=== PATIENT | female | born 1980 | race Caucasian/White ===

== ENCOUNTER 2019-04-09 13:57 | Inpatient (IN) | payer OTHER, SELFPAY ==
[2019-04-09] VITALS (17 sets, daily range): BP systolic 117–142; BP diastolic 76–102; PULSE 75–117; RESP 16–20; TEMP 36.6–37.2; O2SAT 94–100; BMI 31.3
--- NOTE | 2019-04-09 | XR_ITS ---
WS: [id number] XR ankle RT 2V [id number] REASON FOR EXAM: OR PICS FINDINGS: The dislocated fracture of the fibula and ankle mortise is now been corrected a metal plate is seen transversing the fibula fracture Posterior shelf of the tibia satisfactory alignment. XR/XR ankle RT 2V [id number] IMPRESSION: Satisfactory realignment dislocation of the right ankle with internal fixation.
--- NOTE | 2019-04-09 | SCC_ITS ---
Procedure Done: Open right internal fixation right lateral malleolus fracture 19.3 seconds of fluoroscopic guidance, for a cumulative dose of 0.37 mGy, was provided to Dr. Dinh by the radiology department. C-arm images of the RIGHT ankle were saved for the patient's permanent record. [facility]
--- NOTE | 2019-04-09 14:06 | XR_ITS ---
WS: [id number] XR ankle RT min 3V* [id number] REASON FOR EXAM: trauma FINDINGS: This study shows a dislocated fracture of the fibula with marked widening and displacement of the ankle mortise. There is also noted a fracture through the posterior shelf of the tibia. XR/XR ankle RT min 3V* [id number] IMPRESSION: Displaced fracture through the ankle mortise with a bimalleolar fracture and di splacement of the lateral malleolus as well as the posterior malleolus.
--- NOTE | 2019-04-09 14:06 | W.ED.EXTPRO ---
Documented by User: CECILIA Monte 04/09/19 15:07 HPI - Extremity Problem General: Chief complaint: Extremity Injury, Lower Stated complaint: right ankle pain Time Seen by Provider: 04/09/19 14:02 History of Present Illness: HPI Narrative: Patient was stepping out of a truck and she twisted her right ankle just a little while ago. Complains about swelling to right ankle cannot bear weight presently. She says it does not hurt. She has had 4 beers to drink. Since 11:00 this morning has not had anything to eat. MD Complaint: extremity pain and extremity swelling Onset (ago): minute(s) Pain Consistency: constant Location: right Relieving factors: nothing Exacerbating factors: weight bearing Associated symptoms: Deny chest pain, fever(s) or rash Review of Systems Const: Denies: fever, chills or body aches Eyes: Denies: change in vision or blurry vision ENMT: Denies: throat pain or nasal congestion Card: Denies: chest pain or shortness of breath on exertion Resp: Denies: shortness of breath, productive cough or non-productive cough GI: Denies: abdominal pain, nausea or vomiting Musc: Reports: extremity pain and extremity swelling Skin/Breast: Denies: rash Neuro: Denies: headache Psych: Denies: anxiety or depression Hernandez/Lymph: Denies: easy bruising PFS ED PFSH: Medical History (Updated 04/09/19 @ 15:57 by Rakesh Dinh DO) Fracture dislocation of right ankle joint Left ankle sprain Social History Smoking and tobacco status: current every day smoker Physical Exam Const: COMMON NORMALS: no apparent distress, average body habitus and oriented x3 HENMT: COMMON NORMALS: normocephalic HEAD & SCALP: normal to inspection and normocephalic FACE & SINUS: normal facial exam Eye: COMMON NORMALS: conjunctivae normal GENERAL EYE: normal appearance of both eyes CONJUNCTIVA: Yes conjunctivae normal Neck/C-Spine: COMMON NORMALS: no JVD Chest: COMMONS NORMALS: inspection of chest normal Resp: COMMON NORMALS: normal respiratory effort and clear to auscultation bilaterally AUSCULTATION: clear to auscultation bilaterally Cardio: COMMON NORMALS: no JVD, regular rate and regular rhythm RATE: regular rate RHYTHM: regular rhythm GI: COMMON NORMALS: normal to inspection, nondistended, normoactive bowel sounds Extremity: COMMON NORMALS: normal to inspection and full ROM RIGHT LOWER EXTREMITY: Yes ankle joint (Swelling bilaterally has range of motion good neurovascular exam) Neuro: COMMON NORMALS: oriented x3 Course Vital Signs: Vital signs: Vital Signs Temperature 98.7 F 04/09/19 15:38 Pulse Rate 117 H 04/09/19 15:38 Respiratory Rate 18 04/09/19 15:38 Blood Pressure 117/84 04/09/19 15:38 Pulse Oximetry 100 04/09/19 15:38 MDM - Extremity (Nontraumatic) MDM Narrative: Medical decision making narrative: Spoke with Dr. Dinh and he said he will be taken patient to surgery here next hour or 2. Please keep patient n.p.o. Discussed case with Dr. Oakes Lab Data: Labs: Lab Results 04/09/19 04/09/19 04/09/19 Range/Units 15:00 15:00 15:00 WBC 7.4 (4.0-10.0) 10^3/ uL RBC 4.42 (4.1-5.3) 10^6/u L Hgb 14.6 (11.5-15.3) g/dL Hct 42.6 (37.0-47.0) % MCV 96.4 (81-99) fL MCH 33.0 (28.0-34.0) pg MCHC 34.3 (30.0-36.0) g/dL RDW 11.7 L (12.1-15.1) % Plt Count 192 (130-400) 10^3/c mm MPV 10.3 (7.4-10.4) fL Neut % (Auto) 72.2 % Lymph % (Auto) 14.5 % [place] % (Auto) 10.7 % Eos % (Auto) 1.8 % Baso % (Auto) 0.5 % Neut # (Auto) 5.3 (1.8-7.7) 10^3/u L Lymph # (Auto) 1.1 (0.8-4.8) 10^3/u L [place] # (Auto) 0.8 (0.2-0.9) 10^3/u L Eos # (Auto) 0.1 (0.0-0.8) 10^3/u L Baso # (Auto) 0.0 (0.0-0.1) 10^3/u L Nucleated RBC % (a uto) 0 % Nucleated RBCs # 0.0 /100WBC PT 13.80 H (10.5-13.3) SECO NDS INR 1.03 (0.8-1.2) Sodium 127 L (136-145) mmol/L Potassium 3.5 (3.5-5.1) mmol/L Chloride 89 L (98-107) mmol/L Carbon Dioxide 23 (22-29) mmol/L Anion Gap 18.5 (5-19) BUN 7 (6-20) mg/dL Creatinine 0.7 (0.5-0.9) mg/dL GFR Calculation 92.7 (90-130) mL/min Glucose 103 (65-115) mg/dL Calculated Osmolal ity 260 L (285-295) mOsm/k g Calcium 9.8 (8.5-10.5) mg/dL HCG, Qual (Negative) Ethyl Alcohol 210 H (0-10) mg/dL 04/09/19 Range/Units 15:16 WBC (4.0-10.0) 10^3/ uL RBC (4.1-5.3) 10^6/u L Hgb (11.5-15.3) g/dL Hct (37.0-47.0) % MCV (81-99) fL MCH (28.0-34.0) pg MCHC (30.0-36.0) g/dL RDW (12.1-15.1) % Plt Count (130-400) 10^3/c mm MPV (7.4-10.4) fL Neut % (Auto) % Lymph % (Auto) % [place] % (Auto) % Eos % (Auto) % Baso % (Auto) % Neut # (Auto) (1.8-7.7) 10^3/u L Lymph # (Auto) (0.8-4.8) 10^3/u L [place] # (Auto) (0.2-0.9) 10^3/u L Eos # (Auto) (0.0-0.8) 10^3/u L Baso # (Auto) (0.0-0.1) 10^3/u L Nucleated RBC % (a uto) % Nucleated RBCs # /100WBC PT (10.5-13.3) SECO NDS INR (0.8-1.2) Sodium (136-145) mmol/L Potassium (3.5-5.1) mmol/L Chloride (98-107) mmol/L Carbon Dioxide (22-29) mmol/L Anion Gap (5-19) BUN (6-20) mg/dL Creatinine (0.5-0.9) mg/dL GFR Calculation (90-130) mL/min Glucose (65-115) mg/dL Calculated Osmolal ity (285-295) mOsm/k g Calcium (8.5-10.5) mg/dL HCG, Qual Negative (Negative) Ethyl Alcohol (0-10) mg/dL Discharge Plan Discharge Patient Disposition: Admitted As Inpatient Clinical Impression: Ankle fracture, bimalleolar, closed Qualifiers: Encounter type: initial encounter Laterality: right Qualified Code(s): S82.841A - Displaced bimalleolar fracture of right lower leg, initial encounter for closed fracture Condition: Stable Discharge Diet: As Directed Discharge Activity: Increase activity as tolerated and Use walker/crutches as instructed Patient Instructions: Ankle Fracture (ED) Discharge Date/Time: 04/09/19 15:25 Coding Level of Care Code ED Warp Dyeing Tender for Chg Fwd Exam Comprehensive Documented by User: Zheng Oakes DO 04/09/19 17:47 HPI - Extremity Problem General: Chief complaint: Extremity Injury, Lower Stated complaint: right ankle pain Time Seen by Provider: 04/09/19 14:02 History of Present Illness: Associated symptoms: Deny chest pain, fever(s) or rash Review of Systems Const: Denies: fever, chills, body aches, fatigue, malaise or night sweats Eyes: Denies: change in vision or blurry vision ENMT: Denies: throat pain, oral sores/lesions, dental pain, nasal discharge or nasal congestion Card: Denies: chest pain, palpitations, irregular heart rhythm, edema, syncope, shortness of breath on exertion, shortness of breath when lying down or leg pain with exertion Resp: Denies: shortness of breath, productive cough, non-productive cough or wheezing GI: Denies: abdominal pain, nausea, vomiting, vomiting blood, coffee grounds in vomit, difficulty swallowing, heartburn/indigestion, diarrhea, constipation, cramping, blood in stool or black tarry stool : Denies: flank pain, painful urination, urinary frequency, urinary urgency, urinary incontinence or blood in urine Musc: Denies: neck pain, back pain, extremity pain, extremity swelling, joint pain or joint swelling Skin/Breast: Denies: rash, itching or redness Neuro: Denies: headache, numbness in extremities, weakness in extremities, changes in sensation, lack of coordination, difficulty walking, frequent falls, dizziness, vertigo or confusion Psych: Denies: anxiety, depression, loss of interest, visual hallucinations, auditory hallucinations, suicidal ideation or homicidal ideation Endo: Denies: excessive urination, excessive thirst, tired all the time or cold intolerance Hernandez/Lymph: Denies: easy bruising, easy bleeding, petechiae, enlarged lymph nodes or tender lymph nodes PFSH ED PFSH: Medical History (Updated 04/09/19 @ 15:57 by Rakesh Dinh DO) Fracture dislocation of right ankle joint Left ankle sprain Social History Smoking and tobacco status: current every day smoker Physical Exam Const: COMMON NORMALS: average body habitus, oriented x3 and alert GENERAL APPEARANCE: cooperative, comfortable, well kempt and well developed NUTRITIONAL APPEARANCE: obese ORIENTATION/CONSCIOUSNESS: Yes awake, Yes oriented to person and Yes oriented to place HENMT: COMMON NORMALS: normocephalic, head/scalp atraumatic and external nose normal HEAD & SCALP: normocephalic and atraumatic NOSE: external nose normal Eye: COMMON NORMALS: PERRL, EOMs intact bilaterally, conjunctivae normal and no scleral icterus CONJUNCTIVA: Yes conjunctivae normal PUPIL: Yes PERRL Neck/C-Spine: COMMON NORMALS: full ROM, no lymphadenopathy, supple, no meningeal signs and thyroid normal THYROID: thyroid normal and asymmetrical Lymph: LYMPHATIC: no lymphadenopathy noted Resp: COMMON NORMALS: normal respiratory effort, no retractions, no use of accessory muscles and clear to auscultation bilaterally AUSCULTATION: clear to auscultation bilaterally Cardio: COMMON NORMALS: regular rate and regular rhythm RATE: regular rate RHYTHM: regular rhythm HEART SOUNDS: no murmurs GI: COMMON NORMALS: normal to inspection, nondistended, normoactive bowel sounds, soft to palpation and no hepatosplenomegaly PALPATION: Yes soft and Yes no hepatosplenomegaly Extremity: OTHER: Swelling and deformity consistent with fracture seen on plain x-ray. Numbness and tingling dorsalis pedis pulse present Neuro: COMMON NORMALS: oriented x3 SENSORIUM/ORIENTATION: Yes alert, Yes oriented to person and Yes oriented to place MENINGEAL SIGNS: Yes no meningeal signs Psych: APPEARANCE: Yes well kempt Skin: COMMON NORMALS: no rashes or lesions noted and skin turgor normal GENERAL SKIN EXAM: no rashes or lesions noted and turgor normal Course Vital Signs: Vital signs: Vital Signs Temperature 98.7 F 04/09/19 15:38 Pulse Rate 117 H 04/09/19 15:38 Respiratory Rate 18 04/09/19 15:38 Blood Pressure 117/84 04/09/19 15:38 Pulse Oximetry 100 04/09/19 15:38 MDM - Extremity (Nontraumatic) Lab Data: Labs: Lab Results 04/09/19 04/09/19 04/09/19 Range/Units 15:00 15:00 15:00 WBC 7.4 (4.0-10.0) 10^3/ uL RBC 4.42 (4.1-5.3) 10^6/u L Hgb 14.6 (11.5-15.3) g/dL Hct 42.6 (37.0-47.0) % MCV 96.4 (81-99) fL MCH 33.0 (28.0-34.0) pg MCHC 34.3 (30.0-36.0) g/dL RDW 11.7 L (12.1-15.1) % Plt Count 192 (130-400) 10^3/c mm MPV 10.3 (7.4-10.4) fL Neut % (Auto) 72.2 % Lymph % (Auto) 14.5 % [place] % (Auto) 10.7 % Eos % (Auto) 1.8 % Baso % (Auto) 0.5 % Neut # (Auto) 5.3 (1.8-7.7) 10^3/u L Lymph # (Auto) 1.1 (0.8-4.8) 10^3/u L [place] # (Auto) 0.8 (0.2-0.9) 10^3/u L Eos # (Auto) 0.1 (0.0-0.8) 10^3/u L Baso # (Auto) 0.0 (0.0-0.1) 10^3/u L Nucleated RBC % (a uto) 0 % Nucleated RBCs # 0.0 /100WBC PT 13.80 H (10.5-13.3) SECO NDS INR 1.03 (0.8-1.2) Sodium 127 L (136-145) mmol/L Potassium 3.5 (3.5-5.1) mmol/L Chloride 89 L (98-107) mmol/L Carbon Dioxide 23 (22-29) mmol/L Anion Gap 18.5 (5-19) BUN 7 (6-20) mg/dL Creatinine 0.7 (0.5-0.9) mg/dL GFR Calculation 92.7 (90-130) mL/min Glucose 103 (65-115) mg/dL Calculated Osmolal ity 260 L (285-295) mOsm/k g Calcium 9.8 (8.5-10.5) mg/dL HCG, Qual (Negative) Ethyl Alcohol 210 H (0-10) mg/dL 04/09/19 Range/Units 15:16 WBC (4.0-10.0) 10^3/ uL RBC (4.1-5.3) 10^6/u L Hgb (11.5-15.3) g/dL Hct (37.0-47.0) % MCV (81-99) fL MCH (28.0-34.0) pg MCHC (30.0-36.0) g/dL RDW (12.1-15.1) % Plt Count (130-400) 10^3/c mm MPV (7.4-10.4) fL Neut % (Auto) % Lymph % (Auto) % [place] % (Auto) % Eos % (Auto) % Baso % (Auto) % Neut # (Auto) (1.8-7.7) 10^3/u L Lymph # (Auto) (0.8-4.8) 10^3/u L [place] # (Auto) (0.2-0.9) 10^3/u L Eos # (Auto) (0.0-0.8) 10^3/u L Baso # (Auto) (0.0-0.1) 10^3/u L Nucleated RBC % (a uto) % Nucleated RBCs # /100WBC PT (10.5-13.3) SECO NDS INR (0.8-1.2) Sodium (136-145) mmol/L Potassium (3.5-5.1) mmol/L Chloride (98-107) mmol/L Carbon Dioxide (22-29) mmol/L Anion Gap (5-19) BUN (6-20) mg/dL Creatinine (0.5-0.9) mg/dL GFR Calculation (90-130) mL/min Glucose (65-115) mg/dL Calculated Osmolal ity (285-295) mOsm/k g Calcium (8.5-10.5) mg/dL HCG, Qual Negative (Negative) Ethyl Alcohol (0-10) mg/dL Discharge Plan Discharge Patient Disposition: Admitted As Inpatient Clinical Impression: Ankle fracture, bimalleolar, closed Qualifiers: Encounter type: initial encounter Laterality: right Qualified Code(s): S82.841A - Displaced bimalleolar fracture of right lower leg, initial encounter for closed fracture Condition: Stable Discharge Diet: As Directed Discharge Activity: Increase activity as tolerated and Use walker/crutches as instructed Patient Instructions: Ankle Fracture (ED) Discharge Date/Time: 04/09/19 15:25 Coding Level of Care Code ED Warp Dyeing Tender for Ellen Fwd Exam Comprehensive
[2019-04-09] MEDS: sodium chloride 0.9% 1,000 ML 999 ML IV (15:12)
[2019-04-09] MEDS: morphine 4 mg/mL SDV 1 mL IVP (15:19)
[2019-04-09] MEDS: ondansetron 2 mg/ML SDV 2 mL 4 MG IVP ×2 (15:19→20:38)
[2019-04-09 15:23] LABS: Basophils % 0.5 %; Eosinophils # 0.1 10^3/uL (0.0-0.8); Eosinophils % 1.8 %; Hematocrit 42.6 % (37.0-47.0); Hemoglobin 14.6 g/dL (11.5-15.3); Lymphocytes # 1.1 10^3/uL (0.8-4.8); Lymphocytes % 14.5 %; Mean Corpuscular HGB Conc 34.3 g/dL (30.0-36.0); Mean Corpuscular Volume 96.4 fL (81-99); Mean Platelet Volume 10.3 fL (7.4-10.4); Monocytes # 0.8 10^3/uL (0.2-0.9); Monocytes % 10.7 %; Neutrophils # 5.3 10^3/uL (1.8-7.7); Neutrophils % 72.2 %; Nucleated Red Blood Cells % 0 %; Platelet Count 192 10^3/cmm (130-400); Red Blood Count 4.42 10^6/uL (4.1-5.3); Red Cell Distribution Width 11.7 % (12.1-15.1); White Blood Count 7.4 10^3/uL (4.0-10.0)
[2019-04-09 15:39] LABS: Alcohol Level 210 mg/dL (0-10); Anion Gap 18.5 (5-19); Blood Urea Nitrogen 7 mg/dL (6-20); Calcium 9.8 mg/dL (8.5-10.5); Carbon Dioxide 23 mmol/L (22-29); Chloride 89 mmol/L (98-107); Glomerular Filtration Rate 92.7 mL/min (90-130); Glucose 103 mg/dL (65-115); Osmolality Calculated 260 mOsm/kg (285-295); Potassium 3.5 mmol/L (3.5-5.1); Sodium 127 mmol/L (136-145)
[2019-04-09 15:46] LABS: INR 1.03 (0.8-1.2)
--- NOTE | 2019-04-09 15:49 | P.HP_ITS ---
Providers/Chief Complaint Admitting Physician: Rakesh ruiz [facility] orthopedics Chief Complaint: right ankle pain History of Present Illness Meron Sherwood is a 38 year old female who had approximately 4 alcoholic beverages (beers) today she slipped getting out of her truck and sustained a right ankle injury. She is brought to [facility] emergency room where x-rays were taken which show a fracture dislocation of the right ankle. She has displaced fracture of the lateral malleolus. There is widening of the medial clear space. Her fracture is a Ortiz B in nature. There does not appear to be gross disruption of the distal tibiofibular joint. Patient unable to bear weight on the right lower extremity due to pain she also has associated numbness. She has minor pain on the lateral aspect of her left ankle. She denies any other somatic injury she had no loss of consciousness did not hit her head Review of Systems Const: Denies: fever or chills Card: Denies: chest pain or syncope Resp: Denies: shortness of breath or productive cough GI: Denies: abdominal pain, nausea or vomiting Musc: Reports: joint pain (Right ankle much much greater than left ankle), joint swelling, joint stiffness and limited range of motion; Denies: redness Medications/Allergies Home Medications Medication Instructions Recorded Confirmed Last Taken Type bupropion HCl 300 mg PO DAILY 04/09/19 04/09/19 04/09/19 History hydrochlorothiazide 12.5 mg PO DAILY 04/09/19 04/09/19 04/09/19 History metoprolol succinate 25 mg PO DAILY 04/09/19 04/09/19 04/09/19 History omeprazole 40 mg PO DAILY 04/09/19 04/09/19 04/09/19 History quetiapine 25 mg PO BEDTIME 04/09/19 04/09/19 04/08/19 History quetiapine 100 mg PO DAILY 04/09/19 04/09/19 04/09/19 History ropinirole 1 mg PO BEDTIME 04/09/19 04/09/19 04/08/19 History trazodone 150 mg PO BEDTIME 04/09/19 04/09/19 04/08/19 History Allergies Allergy/AdvReac Type Severity Reaction Status Date / Time No Known Allergies Allergy Verified 04/09/19 14:01 PFSH Acute PFSH: Medical History (Updated 04/09/19 @ 15:57 by Rakesh Dinh DO) Fracture dislocation of right ankle joint Left ankle sprain Social History Smoking and tobacco status: current every day smoker Vitals/I&O/Wt Last Vital Signs Temp 98.7 F 04/09/19 15:38 Pulse 117 H 04/09/19 15:38 Resp 18 04/09/19 15:38 BP 117/84 04/09/19 15:38 Pulse Ox 100 04/09/19 15:38 Weight last 48 hrs Weight 200 lb Physical Exam Narrative: EXAM NARRATIVE: 38-year-old white female in mild acute distress Const: COMMON NORMALS: average body habitus, oriented x3 and alert EXAM LIMITATIONS: no altered mental status GENERAL APPEARANCE: cooperative and well kempt Neck/C-Spine: COMMON NORMALS: full ROM and supple Resp: COMMON NORMALS: normal respiratory effort EFFORT & INSPECTION: Yes able to speak in complete sentences AUSCULTATION: no crackles, no rales, no rhonchi and no wheezes Cardio: COMMON NORMALS: no JVD, regular rate, regular rhythm, S1 normal heart sound and S2 normal heart sound; negative for no gallops and negative for no murmurs Extremity: RIGHT LOWER EXTREMITY: Yes ankle joint Right ankle: Yes inspection (Gross deformity due to ankle fracture dislocation) and Yes neurovascular exam (Subjective decreased sensation dorsum of foot but with normal capillary refill) LEFT LOWER EXTREMITY: Yes knee joint (Normal to inspection, nontender to palpation) and Yes ankle joint (Tender over anterior talofibular ligament mild swelling over the lateral aspect the ankle nontender medial ankle) Data : 04/09/19 15:00 04/09/19 15:00 A&P Assessment and plan (1) Fracture dislocation of right ankle joint: Patient be taken to the operating room on an urgent basis due to decreased sensation with fracture dislocation of the right ankle. Risk, benefits and potential complications of surgery discussed with the patient family is present. All are agreeable to proceed with surgical intervention. Patient will most li diya require rapid sequence intubation as she is not been n.p.o. for 6 hours. She will be nonweightbearing postoperative right lower extremity. The patient will need to stay out of work well she is immobilized due to her inability to drive due to the injury involving her right ankle. Status: Acute Code(s): S82.891A - Other fracture of right lower leg, initial encounter for closed fracture (2) Left ankle sprain: We are aware of left ankle sprain we will see how she responds to mobilization tomorrow she potentially may need to be fitted with a lace up ankle brace Status: Acute Code(s): S93.402A - Sprain of unspecified ligament of left ankle, initial encounter Attestations Medical Necessity Statement*: Plan is to perform surgery on the patient and admit her overnight for pain control and observation for potential alcohol withdrawal. Hospitalist has been consulted Dr. Laboy. Time Spent in Patient Care: Greater than 35 minutes Coding Level of Care Code Acute Insurance Clerk for Ellen Mark Diagnoses Fracture dislocation of right ankle joint S82.891A Left ankle sprain S93.402A
--- NOTE | 2019-04-09 15:52 | P.ANESASSM_ITS ---
Documented by User: Roxann Pyle CRNA 04/09/19 15:59 Pre-Anesthetic Assessment Pre-Anesthetic Assessment: Height/Weight: Height 1.7 m Weight 90.718 kg Temp Pulse Resp BP Pulse Ox 98.7 F 117 H 18 117/84 100 04/09/19 15:38 04/09/19 15:38 04/09/19 15:38 04/09/19 15:38 04/09/19 15:38 Preop Diagnosis: R ankle fracture Proposed Procedure: Operation Date: 04/09/19 16:00 Proposed Procedures p ORIF Ankle(Not Applicable) - Rakesh Dinh DO Familial anesthetic complications: denies Was Beta Shoaib taken within 24 hours: Yes (729) Last intake: Intake Last Liquid Date 04/09/19 Last Liquid Time 14:45 Last Solid Date 04/09/19 Last Solid Time 14:45 Last Intake: 14:00 (chips and water) Social: Social History: Alcohol (today(last drink around 1130am)) and Tobacco (daily 1.5 ppd) Exam: Pre-Anes Outpt Exam: alert, oriented x 3, clear to auscultation bilaterally and regular rate & rhythm Airway: Submandibular: WNL Cervical ROM: WNL MP: 2 Dentition: Full History/ROS: No significant history except as noted Pulmonary: Pulmonary: Cough (last couple days) CV/HEM: CV/HEM: HTN : : None reported Hepatic: Hepatic: None reported GI: GI: GERD (omeprazole) Metabolic: Metabolic: None reported Musc/skel: Musc/skel: Lower Back Pain Comments: sciatica Neuropsych: Neuropsych: Depression and MANCUSO (migraines) Anesthetic Plan: ASA status: 2E Anesthesia: Anesthesia Evaluation and General Risk of > 500 ml blood loss (7ml/kg in children): No Meds/Allergies Current Medications: Current Medications Generic Name Dose Route Start Last Admin Trade Name Freq PRN Reason Stop Dose Admin Potassium Chloride /Sodium Chloride 20 meq in 1,000 m ls @ 125 mls/hr 04/09/19 15:15 04/09/19 15:24 Sodium Chlor 0.9 % + Kcl 20 Meq IV Not Given .Q8H CECILE PFSH Anesthesia 2 PFSH: Medical History (Updated 04/09/19 @ 15:57 by Rakesh Dinh DO) Fracture dislocation of right ankle joint Left ankle sprain Social History Smoking and tobacco status: current every day smoker Data Anesthesia CBC & Chem 7: 04/09/19 15:00 04/09/19 15:00 Other Labs: Laboratory Results - last 48 hr 04/09/19 04/09/19 04/09/19 15:00 15:00 15:00 WBC 7.4 RBC 4.42 Hgb 14.6 Hct 42.6 MCV 96.4 MCH 33.0 MCHC 34.3 RDW 11.7 L Plt Count 192 MPV 10.3 Neut % (Auto) 72.2 Lymph % (Auto) 14.5 [place] % (Auto) 10.7 Eos % (Auto) 1.8 Baso % (Auto) 0.5 Neut # (Auto) 5.3 Lymph # (Auto) 1.1 [place] # (Auto) 0.8 Eos # (Auto) 0.1 Baso # (Auto) 0.0 Nucleated RBC % (auto) 0 Nucleated RBCs # 0.0 PT 13.80 H INR 1.03 Sodium 127 L Potassium 3.5 Chloride 89 L Carbon Dioxide 23 Anion Gap 18.5 BUN 7 Creatinine 0.7 GFR Calculation 92.7 Glucose 103 Calculated Osmolality 260 L Calcium 9.8 Ethyl Alcohol 210 H Cardiac Studies: No Data to Display Documented by User: Evelyn Castaneda 04/09/19 16:07 Pre-Anesthetic Assessment Other Pertinent Information: Spoke with surgeon regarding inadequate NPO status. Ankle very swollen and there is Risk of increased swelling which can lead to compartment syndrome or prevent timely repair necessitating three week delay. Surgeon declaring surgery emergent. PFSH Anesthesia PFSH: Medical History (Updated 04/09/19 @ 15:57 by Rakesh Dinh DO) Fracture dislocation of right ankle joint Left ankle sprain Social History Smoking and tobacco status: current every day smoker Data Anesthesia CBC & Chem 7: 04/09/19 15:00 04/09/19 15:00 Cardiac Studies: No Data to Display
--- NOTE | 2019-04-09 16:00 | P.CONIM_ITS ---
Providers/Reason For Consult Consulting Physican/Specialty*: Dr. Jeovany Phan/Internal Medicine Reason for Consult*: Medical issues/ Possible alcohol withdrawal Requesting Physcian: Dr. Dinh Attending Physician: Rakesh Dinh DO History of Present Illness History of Present Illness Meron Sherwood is a 38 year old female with past medical history of HTN, depression, chronic back pain, obesity, IBS, restless leg syndrome, alcohol abuse when she typically takes around 4 alcoholic beverages daily and more on the weekends. Last drink earlier today at 1:30 pm. She presented to the ER today when she tried to get out of the truck and she slipped and sustained a right ankle injury. No h/o head injury. Diagnositics in the ER showed displaced fracture of the lateral malleolus. She was taken in for the surgery for fracture repair with Dr. Dinh. Examined post operatively. At this time, c/o pain at the surgical site but otherwise no acute complaints. Tolerated a clear liquid diet. Requesting nicotine patch. Review of Systems Const: Denies: fever, chills, body aches, change in appetite, malaise, night sweats, diaphoresis, change in sleep pattern, daytime sleepiness or snoring Eyes: Denies: change in vision, blurry vision, photophobia, eye discomfort or eye discharge ENMT: Denies: throat pain, enlarged tonsils, hoarseness, mouth pain, oral sores/lesions, dry mouth, tinnitus, nasal congestion or post nasal drip Card: Denies: chest pain, palpitations, irregular heart rhythm, edema, swelling of feet/ankles, lightheadedness, syncope, pre-syncope, shortness of breath on exertion, shortness of breath when lying down, leg pain with exertion or bluish discoloration of hands/feet Resp: Denies: shortness of breath, productive cough, non-productive cough, wheezing, stridor, pain on inspiration, change in phlegm color, coughing up blood or chest congestion GI: Denies: abdominal pain, nausea, vomiting, vomiting blood, coffee grounds in vomit, difficulty swallowing, heartburn/indigestion, diarrhea, constipation, bloating, cramping, change in bowel habits, painful bowel movements, blood in stool or black tarry stool : Denies: flank pain, painful urination, urinary frequency, urinary urgency, urinary hesitancy, nighttime urination or blood in urine Musc: Reports: extremity pain; Denies: neck pain, back pain, joint pain, joint swelling, redness, joint stiffness or limited range of motion Neuro: Denies: headache, numbness in extremities, weakness in extremities, changes in sensation, lack of coordination, difficulty walking, frequent falls, dizziness, vertigo, confusion, slurred speech, difficulty communicating thoughts or seizure-like activity Psych: Denies: anxiety, depression, mood swings, panic attacks, hopelessness or irritability Endo: Denies: excessive urination, excessive thirst, tired all the time, cold intolerance, excessive sweating, flushing or heat intolerance Hernandez/Lymph: Denies: easy bruising or easy bleeding All/Imm: Denies: tongue swelling, facial swelling or acute wheezing Meds/Allergies Home Medications and Allergies Home Medications Medication Instructions Recorded Confirmed Type bupropion HCl 300 mg PO DAILY 04/09/19 04/09/19 History hydrochlorothiazide 12.5 mg PO DAILY 04/09/19 04/09/19 History metoprolol succinate 25 mg PO DAILY 04/09/19 04/09/19 History omeprazole 40 mg PO DAILY 04/09/19 04/09/19 History quetiapine 25 mg PO BEDTIME 04/09/19 04/09/19 History quetiapine 100 mg PO DAILY 04/09/19 04/09/19 History ropinirole 1 mg PO BEDTIME 04/09/19 04/09/19 History trazodone 150 mg PO BEDTIME 04/09/19 04/09/19 History Allergies Allergy/AdvReac Type Severity Reaction Status Date / Time No Known Allergies Allergy Verified 04/09/19 14:01 Current Medications Current Medications Generic Name Dose Route Start Last Admin Trade Name Freq PRN Reason Stop Dose Admin Potassium Chloride/Sodium Chloride 20 meq in 1,000 mls @ 125 mls/hr 04/09/19 15:15 04/09/19 15:24 Sodium Chlor 0.9% + Kcl 20 Meq IV Not Given .Q8H CECILE PFSH Acute PFSH: Medical History (Updated 04/09/19 @ 20:31 by Jeovany Phan MD) Alcohol abuse Chronic back pain Depression Fracture dislocation of right ankle joint Hypertension IBS (irritable bowel syndrome) Left ankle sprain Restless leg syndrome Social History (Updated 04/09/19 @ 20:31 by Jeovany Phan MD) Smoking and tobacco status: current every day smoker Alcohol intake: current Desire information about alcohol rehabilitation?: No Last alcohol use date: 04/09/19 Last alcohol use time: 13:30 Vitals/I&O/Wt Last Vital Signs Temp 98.7 F 04/09/19 15:38 Pulse 117 H 04/09/19 15:38 Resp 18 04/09/19 15:38 BP 117/84 04/09/19 15:38 Pulse Ox 100 04/09/19 15:38 Weight last 48 hrs Weight 90.718 kg Physical Exam Narrative: EXAM NARRATIVE: General: No acute distress, AO x3, no acute distress HEENT: PERRLA, pupils bilaterally equal and reactive Chest: Clear to auscultation B/L all areas CVS: S1-S2 regular, no murmurs, no tachycardia, no gallops, no rubs Abdomen: Soft, nontender, no organomegaly, bowel sounds present Neuro: No focal deficits, no facial deformity, AO x3, power 5/5 in all limbs EXT: Post op surgical dressing in place over R leg, not opened by me for exam. Palpable dorsalis pedis, no neuro deficit A&P Assessment and plan (1) Fracture dislocation of right ankle joint: Status: Acute Code(s): S82.891A - Other fracture of right lower leg, initial encounter for closed fracture (2) Alcohol abuse: Status: Acute Code(s): F10.10 - Alcohol abuse, uncomplicated (3) Hypertension: Status: Acute Code(s): I10 - Essential (primary) hypertension (4) Nicotine dependence: Status: Acute Code(s): F17.200 - Nicotine dependence, unspecified, uncomplicated Additional A&P Information Admitted to med/surg postopertaively 1. Fracture dislocation of right ankle joint s/p Open right internal fixation right lateral malleolus fracture POD #0 Complains of mild pain and soreness at surgical site, currently ordered for hydromorphone prn + po oxycodone- APAP. Surgical wound care per orthopedics 2. Alcohol abuse disorder, last drink at 1:30 pm today Blood alcohol level 210. In danger of alcohol withdrawal most likely tomorrow Concern for alcohol withdrawal while admitted, ordered for prn ativan per CIWA protocol 3. Nicotine dependence, currently craving cigarettes Will order nicotine patch for hospital use 4. Hypertension: Currently well controlled. Continue home dose metoprololto avoid refractory tachycardia. Will hold off on HTCZ for now to avoid post op dehydration. 5. Depression : continue seroquel and trazodone at home dose 6. restless leg syndrome: contine Ropinirole DVT ppx: ASA 325mg as per ortho team Full code Thank you for letting me take care of the patient. Please call if any further questions. Consult Attestations Medical Necessity Statement: As per primary team Time Spent in Patient Care: Greater than 35 minutes Coding Level of Care Code Acute Sexual Assault Response Coordinator for Ellen Fwd Diagnoses Fracture dislocation of right ankle joint S82.891A Alcohol abuse F10.10 Hypertension I10 Nicotine dependence F17.200
--- NOTE | 2019-04-09 16:03 | P.OP_ITS ---
Operative Report Date of procedure: April 09, 2019 Pre-op Diagnosis: R ankle fracture Pre-op Diagnosis: Closed, displaced fracture dislocation right ankle (displaced lateral malleolus fracture, sprain deltoid ligament with small avulsion fractures essentially a bimalleolar fracture equivalent, no obvious injury to the distal tibiofibular joint) Post-op Diagnosis: Right ankle fracture dislocation Right bimalleolar fracture equivalent with ORIF of the lateral malleolar component only ORIF of right distal tibiofibular joint (syndesmosis) Post-op Findings: Unstable distal tibiofibular joint on stress radiographs noted intraoperatively. Satisfactory reduction of fibular fracture. Synagogue of symmetric spacing about ankle mortise with placement of tight rope device Procedure Done: Open right internal fixation right lateral malleolus fracture Implants: Desdemona fibular plate and screws Pathology: none sent Surgeon: Rakesh Dinh Anesthesia: General Estimated blood loss (mL): 25 Tourniquet time (min): 50 (At 300 mmHg pressure) Complications: No apparent complications Condition: stable Disposition: PACU Brief History: 38-year-old white female who fell getting out of her truck today. She is in a fracture dislocation right ankle. She is this is the emergency room. X-rays were taken which demonstrated the fracture dislocation of her ankle. She had decreased sensation in the right foot. I recommended that she undergo urgent surgical stabilization of her right ankle. My concern is she would develop increased swelling and due to numbness we can have neurovascular compromise to the limb. Risk, benefits and potential complications are discussed the patient is agreeable to proceed. See history of present illness Procedure: 1.5 g Zinacef Patient was identified. Surgical site was signed. Surgical permit was signed. The patient received 1.5 g of Zinacef intravenously for surgical prophylaxis. She was taken to the operating room. She is placed supine on the operating room table. She is in placed under general anesthesia without difficulty. A tourniquet was placed but the upper aspect of the right thigh. The right lower extremity is in sterilely prepped and draped usual fashion. A timeout was performed. The operative limb was exsanguinated using Esmarch bandage and the tourniquet was inflated to 300 mmHg pressure. A 15 cm longitudinal incision was made over the distal aspect of the lateral malleolus and fibula with a #10 blade. Full-thickness skin flaps were made. Using a periosteal elevator we exposed the fracture site. We chose an appropriate length Desdemona fibular plate and provisionally pinned it in place after reducing the fracture. A cortical screw was placed in the proximal fracture fragment followed by a series of locking screws distally. Fluoroscopic imaging demonstrated satisfactory placement of implants. We finished by placing 2 locking screws proximally. We then stressed the syndesmosis and found that it kept open and increased the medial clear space. We made a 3 cm incision on the distal medial tibial metaphysis using a skin knife. A Joe tong pelvic reduction total was applied t o reduce the syndesmosis. A guidewire for an Arthrex tight rope device was first deployed across the 2 cortices of the fibula and the 2 cortices of the tibia. We then overdrilled this with a cannulated drill bit and then deployed a Arthrex tight rope device. Improved spacing of the ankle mortise was noted. The incisions medially and laterally were irrigated with Betadine-containing saline solution and antibiotic containing saline solution. The incisions were closed in layers with a combination of nylon suture and maisha on skin. The incisions were injected with a total of 20 mL of a one-to-one mixture 1% lidocaine and half percent bupivacaine. Antibiotic ointment was applied followed by the application of a well-padded posterior splint with Pedro overwrap. The tourniquet was deflated during application of dressings. The patient was aroused from general anesthesia. She was taken to the recovery room. She tolerated surgery well. All counts are correct.
[2019-04-09 16:12] LABS: HCG Qualitative Urine. Negative (Negative)
[2019-04-09] MEDS: cefUROXime 1,500 MG in sodium chloride 0.9% (plus) 50 ML 100 MG IV (16:21)
[2019-04-09] MEDS: neomycin-poly-bacitracin oint 28 gm 28 APPLIC (17:22)
[2019-04-09] MEDS: folic acid 1 MG, multivitamin inj 10 ML, thiamine 100 MG in sodium chloride 0.9% 1,000 ML 252.8 MG IV (19:17)
[2019-04-09] MEDS: chlorhexidine gluconate 0.12% Btl 473 mL 30 ML MUCOUS MEM (20:39)
[2019-04-09] MEDS: nicotine 14 mg Patch 1 PATCH TRANSDERMA (20:39)
[2019-04-09] MEDS: ropinirole 1 mg Tablet PO (20:40)
[2019-04-09] MEDS: oxyCODONE-APAP 5-325 mg Tablet 1 TAB PO (20:40)
[2019-04-09] MEDS: trazodone 150 mg Tablet PO (20:42)
[2019-04-09] MEDS: quetiapine 25 mg Tablet PO (20:42)
[2019-04-09] MEDS: sodium chloride 0.9% 1,000 ML 100 ML IV (21:27)
[2019-04-09] MEDS: HYDROmorphone 1 mg/mL INJ 1 mL 0.5 MG IVP (22:52)
[2019-04-10] VITALS (17 sets, daily range): BP systolic 93–125; BP diastolic 57–81; PULSE 77–87; RESP 16–20; TEMP 36.7–37.2; O2SAT 94–98
[2019-04-10] MEDS: oxyCODONE-APAP 5-325 mg Tablet 1 TAB PO ×5 (01:55→22:32)
[2019-04-10] MEDS: ondansetron 2 mg/ML SDV 2 mL 4 MG IVP ×4 (01:55→20:13)
[2019-04-10] MEDS: HYDROmorphone 1 mg/mL INJ 1 mL 0.5 MG IVP ×4 (04:07→20:14)
[2019-04-10] MEDS: metoprolol succinate ER (24 HR) 25 mg Tablet PO (07:50)
[2019-04-10] MEDS: pantoprazole DR 40 mg Tablet PO (07:50)
[2019-04-10] MEDS: buPROPion XL (24 HR) 300 mg Tablet PO (07:50)
[2019-04-10] MEDS: multivitamin therapeutic Tablet 1 TAB PO (07:51)
[2019-04-10] MEDS: quetiapine 100 mg Tablet PO (07:51)
[2019-04-10] MEDS: folic acid 1 mg Tablet PO (07:51)
[2019-04-10] MEDS: aspirin 325 mg EC Tablet PO (07:52)
[2019-04-10] MEDS: nicotine 14 mg Patch 1 PATCH TRANSDERMA (07:52)
[2019-04-10] MEDS: thiamine 100 mg Tablet PO (07:52)
[2019-04-10] MEDS: chlorhexidine gluconate 0.12% Btl 473 mL 30 ML MUCOUS MEM ×4 (07:53→20:28)
--- NOTE | 2019-04-10 09:12 | ANE.PACU2 ---
 Inpatient post-anesthesia follow up: Airway intact: Yes Vital signs: Temperature 98.1 F Pulse Rate [Monito r] 93 Pulse Rate 87 Respiratory Rate 18 Blood Pressure [Ri ght Arm] 128/98 Blood Pressure 120/81 Pulse Oximetry 95 Oxygen Delivery Me thod Room Air Oxygen Flow Rate 6 Fraction of Inspir ed Oxygen Hydration adequate: Yes Nausea and vomiting: No Mental status: Baseline Additional Comments: pain controlled when receiving meds per patient
--- NOTE | 2019-04-10 13:12 | PM.PN ---
Subjective Subjective: Interval history: Postoperative day 1. No acute events overnight. On examination this morning patient is sitting comfortably in bed having her lunch. She denies of having any nausea, vomiting, dizziness, headache, palpitations, jittery feeling, abdominal pain but does complain of pain in her ankle. Vitals/I&O/Wt Last Vital Signs Temp 98.2 F 04/10/19 12:58 Pulse 81 04/10/19 12:58 Resp 18 04/10/19 12:58 BP 112/68 04/10/19 12:58 Pulse Ox 94 04/10/19 12:58 04/09/19 04/10/19 04/10/19 22:59 06:59 14:59 Intake Total 50 / 50 50 / 100 360 / 360 Output Total 2935 / 2935 5 / 4960 400 / 400 Balance -2885 / -2885 -1975 / -4860 -40 / -40 Weight last 48 hrs Weight 90.718 kg Physical Exam Narrative: EXAM NARRATIVE: General: No acute distress, AO x3, no acute distress HEENT: PERRLA, pupils bilaterally equal and reactive Chest: Clear to auscultation B/L all areas CVS: S1-S2 regular, no murmurs, no tachycardia, no gallops, no rubs Abdomen: Soft, nontender, no organomegaly, bowel sounds present Neuro: No focal deficits, no facial deformity, AO x3, power 5/5 in all limbs EXT: Post op surgical dressing in place over R leg, not opened by me for exam. Palpable dorsalis pedis, no neuro deficit Data : 04/09/19 15:00 04/09/19 15:00 A&P Assessment and plan (1) Fracture dislocation of right ankle joint: Status: Acute Code(s): S82.891A - Other fracture of right lower leg, initial encounter for closed fracture (2) Alcohol abuse: Status: Acute Code(s): F10.10 - Alcohol abuse, uncomplicated (3) Hypertension: Status: Acute Code(s): I10 - Essential (primary) hypertension (4) Nicotine dependence: Status: Acute Code(s): F17.200 - Nicotine dependence, unspecified, uncomplicated Additional A&P Information Admitted to med/surg postopertaively Fracture dislocation of right ankle joint s/p Open right internal fixation right lateral malleolus fracture POD #1 Complains of mild pain and soreness at surgical site, currently ordered for hydromorphone prn + po oxycodone- APAP. We will continue the current pain management. Physical therapy, weightbearing and postop antibiotics as per orthopedics team. Surgical wound care per orthopedics Alcohol abuse disorder, last drink at 1:30 pm today Blood alcohol level 210. In danger of alcohol withdrawal most likely today evening or tomorrow morning. Concern for alcohol withdrawal while admitted, ordered for prn ativan per CIWA protocol. CIWA 1 right now. Thiamine, folic acid, multivitamins as per the protocol. Patient already received banana bag.. Nicotine dependence, currently craving cigarettes Will order nicotine patch for hospital use Hypertension: Currently well controlled. Continue home dose metoprolol to avoid refractory tachycardia. Will hold off on HTCZ for now to avoid post op dehydration. DC IV fluids as patient looks euvolemic for now. Continue to hold off on hydrochlorothiazide. Hyponatremia: Sodium levels 127 on admission. Labs awaited this morning. Patient does not have any stigmata of hyponatremia. Most likely low because of chronic alcoholism. We will continue to monitor for now. We will hold off on fluids for now as patient seems euvolemic. Depression : continue seroquel and trazodone at home dose Restless leg syndrome: Continue with home dose ropinirole DVT ppx: ASA 325mg as per ortho team Full code Regular diet. Protonix for PUD prophylaxis. Thank you for letting me take care of the patient. Please call if any further questions. Attestations Medical Necessity Statement*: As per the primary team. Time Spent in Patient Care: 16 - 35 minutes Coding Level of Care Code Acute House Admin for Ellen Mark Diagnoses Fracture dislocation of right ankle joint S82.891A Alcohol abuse F10.10 Hypertension I10 Nicotine dependence F17.200
[2019-04-10 13:27] LABS: Hematocrit 37.9 % (37.0-47.0); Hemoglobin 12.8 g/dL (11.5-15.3); Lymphocytes # 0.7 10^3/uL (0.8-4.8); Lymphocytes % 7.1 %; Mean Corpuscular HGB Conc 33.8 g/dL (30.0-36.0); Mean Corpuscular Volume 100.8 fL (81-99); Mean Platelet Volume 11.1 fL (7.4-10.4); Monocytes # 0.5 10^3/uL (0.2-0.9); Monocytes % 5.8 %; Neutrophils % 86.8 %; Nucleated Red Blood Cells % 0 %; Platelet Count 146 10^3/cmm (130-400); Red Blood Count 3.76 10^6/uL (4.1-5.3); White Blood Count 9.2 10^3/uL (4.0-10.0)
[2019-04-10 13:51] LABS: Alanine Aminotransferase 22 U/L (0-33); Albumin Level 4.4 g/dL (3.5-5.2); Alkaline Phosphatase 61 IU/L (35-105); Anion Gap 18.7 (5-19); Blood Urea Nitrogen 7 mg/dL (6-20); Calcium 9.1 mg/dL (8.5-10.5); Carbon Dioxide 21 mmol/L (22-29); Chloride 98 mmol/L (98-107); Globulin 2.6 g/dL (1.3-4.6); Glomerular Filtration Rate 79.4 mL/min (90-130); Glucose 143 mg/dL (65-115); Potassium 3.7 mmol/L (3.5-5.1); Sodium 134 mmol/L (136-145); Total Bilirubin 0.6 mg/dL (0.15-1.2)
[2019-04-10 13:55] LABS: Aspartate Amino Transferase 34 U/L (0-32)
[2019-04-10 13:58] LABS: Slide Review Slide Review Perform
--- NOTE | 2019-04-10 18:34 | P.PN_ITS ---
Subjective Subjective: Interval history: 38-year-old white female postoperative day 1 status post repair of right ankle fracture dislocation and treatment for left ankle sprain. Patient injured herself yesterday when getting out of her truck. She slipped and sustained the previously mentioned injuries. Blood alcohol level was elevated at 0.210. Hospitalist consulted for medical comanagement postoperatively. Patient's been evaluated by physical therapy they recommend a walker. She's been fitted with a lace up ankle brace to treat her left ankle sprain. Pain control is an issue. She is requiring intravenous pain medication in addition to oral medication. She was interested in going home but I informed her that she would not be able to get intravenous pain medication at home and t here is a high risk that she'll have to do more activity at home and she may return to the emergency room because of lack of adequate pain control. For this reason we'll admit her as an inpatient to day and reassess potential discharge tomorrow to home. 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 Obviously being nonweightbearing in her right lower extremity and in a short leg splint she'll not be able to drive. 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 Otherwise she'll need to remain out of work. We will include this in her discharge summa ry. Vitals/I&O/Wt Last Vital Signs Temp 98.2 F 04/10/19 15:58 Pulse 87 04/10/19 15:58 Resp 16 04/10/19 17:31 BP 93/57 04/10/19 15:58 Pulse Ox 97 04/10/19 15:58 04/10/19 04/10/19 04/10/19 06:59 14:59 22:59 Intake Total 50 / 100 410 / 410 Output Total 202460 400 / 400 650 / 1050 Balance -1974 / -650 / -640 Weight last 48 hrs Weight 200 lb Physical Exam Const: COMMON NORMALS: no apparent distress, oriented x3, healthy appearing, alert and well nourished GENERAL APPEARANCE: cooperative Neck/C-Spine: COMMON NORMALS: no JVD Resp: COMMON NORMALS: normal respiratory effort, no retractions, no use of accessory muscles and clear to auscultation bilaterally AUSCULTATION: clear to auscultation bilaterally, no crackles, no rales, no rhonchi, no wheezes and breath sounds present Cardio: COMMON NORMALS: no JVD, regular rate, regular rhythm, S1 normal heart sound, S2 normal heart sound and no murmurs RATE: regular rate RHYTHM: regular rhythm HEART SOUNDS: S1 normal and S2 normal GI: COMMON NORMALS: normal to inspection, nondistended, normoactive bowel sounds, soft to palpation and non-tender PALPATION: Yes soft Extremity: NARRATIVE EXTREMITY EXAM: right lower extremity splinted in a Godwin Beltran dressing with a posterior short leg plaster splint. Small area of bruising at the level of the patella that was not present yesterday. Toes of the right foot are sensate with normal capillary refill, Lasix ankle brace on left ankle toes are sensate on the left foot no calf tenderness left leg Neuro: COMMON NORMALS: oriented x3 SENSORIUM/ORIENTATION: Yes alert Data : 04/10/19 13:20 04/10/19 13:20 Attestations Medical Necessity Statement*: patient needs to be admitted to the hospital after. Of observation since surgery yesterday due to concerns for ability to provide adequate pain control with oral medications. So far the patient has had to require occasional doses of potent intravenous pain medication Time Spent in Patient Care: 16 - 35 minutes Coding Level of Care Code Acute Animal Humane Agent Supervisor for Ellen Mark
[2019-04-10] MEDS: trazodone 150 mg Tablet PO (20:26)
[2019-04-10] MEDS: quetiapine 25 mg Tablet PO (20:26)
[2019-04-10] MEDS: ropinirole 1 mg Tablet PO (20:27)
[2019-04-10] MEDS: aspirin 81 mg EC Tablet PO (20:27)
[2019-04-11] VITALS (7 sets, daily range): BP systolic 105–106; BP diastolic 68–70; PULSE 68–80; RESP 16–20; TEMP 36.7–36.8; O2SAT 93–99
[2019-04-11] MEDS: oxyCODONE-APAP 5-325 mg Tablet 1 TAB PO ×3 (02:21→10:40)
[2019-04-11] MEDS: ondansetron 2 mg/ML SDV 2 mL 4 MG IVP (03:28)
[2019-04-11] MEDS: HYDROmorphone 1 mg/mL INJ 1 mL 0.5 MG IVP ×2 (03:29→08:12)
[2019-04-11 06:02] LABS: Basophils % 0.2 %; Eosinophils % 0.2 %; Hematocrit 37.2 % (37.0-47.0); Hemoglobin 12.3 g/dL (11.5-15.3); Lymphocytes # 1.7 10^3/uL (0.8-4.8); Lymphocytes % 26.2 %; Mean Corpuscular HGB Conc 33.1 g/dL (30.0-36.0); Mean Corpuscular Hemoglobin 33.2 pg (28.0-34.0); Mean Corpuscular Volume 100.5 fL (81-99); Mean Platelet Volume 10.9 fL (7.4-10.4); Monocytes # 0.5 10^3/uL (0.2-0.9); Monocytes % 7.6 %; Neutrophils # 4.3 10^3/uL (1.8-7.7); Neutrophils % 65.5 %; Nucleated Red Blood Cells % 0 %; Platelet Count 153 10^3/cmm (130-400); Red Cell Distribution Width 12.1 % (12.1-15.1); White Blood Count 6.6 10^3/uL (4.0-10.0)
[2019-04-11 06:14] LABS: Alanine Aminotransferase 19 U/L (0-33); Albumin Level 4.2 g/dL (3.5-5.2); Alkaline Phosphatase 59 IU/L (35-105); Anion Gap 14.5 (5-19); Aspartate Amino Transferase 27 U/L (0-32); Blood Urea Nitrogen 6 mg/dL (6-20); Calcium 8.9 mg/dL (8.5-10.5); Carbon Dioxide 26 mmol/L (22-29); Chloride 99 mmol/L (98-107); Glomerular Filtration Rate 92.7 mL/min (90-130); Glucose 102 mg/dL (65-115); Potassium 3.5 mmol/L (3.5-5.1); Sodium 136 mmol/L (136-145); Total Bilirubin 0.5 mg/dL (0.15-1.2); Total Protein 7.2 g/dL (6.6-8.7)
[2019-04-11] MEDS: chlorhexidine gluconate 0.12% Btl 473 mL 30 ML MUCOUS MEM (08:11)
[2019-04-11] MEDS: folic acid 1 mg Tablet PO (08:11)
[2019-04-11] MEDS: thiamine 100 mg Tablet PO (08:11)
[2019-04-11] MEDS: pantoprazole DR 40 mg Tablet PO (08:12)
[2019-04-11] MEDS: multivitamin therapeutic Tablet 1 TAB PO (08:12)
[2019-04-11] MEDS: buPROPion XL (24 HR) 300 mg Tablet PO (08:12)
[2019-04-11] MEDS: nicotine 14 mg Patch 1 PATCH TRANSDERMA (08:12)
[2019-04-11] MEDS: metoprolol succinate ER (24 HR) 25 mg Tablet PO (08:12)
--- NOTE | 2019-04-11 10:50 | P.DS_ITS ---
Discharge Providers Date of Admission: 04/10/19 18:40 Date of Discharge: April 11, 2019 Attending Provider at Admission: Rakesh Dinh DO Attending Provider at Discharge: Rakesh Dinh DO Diagnoses at Discharge Discharge Diagnosis (1) Fracture dislocation of right ankle joint: Status: Acute Problem details: Right bimalleolar ankle fracture equivalent with disruption of the distal tibiofibular joint (2) Alcohol abuse: Status: Acute Problem details: Elevated blood alcohol level at admission (3) Hypertension: Status: Acute (4) Nicotine dependence: Status: Acute Problem details: And every day smoker Reason for Visit Reason for Visit: Reason For Visit: right ankle pain Hospital Course Hospital Course: 38-year-old white female postoperative day 1 status post repair of right ankle fracture dislocation and treatment for left ankle sprain. Patient injured herself yesterday when getting out of her truck. She slipped and sustained the previously mentioned injuries. Blood alcohol level was eleva babak at 0.210. Hospitalist consulted for medical comanagement postoperatively. Patient's been evaluated by physical therapy they recommend a walker. She's been fitted with a lace up ankle brace to treat her left ankle sprain. Pain control is an issue. She is requiring intravenous pain medication in addition to oral medication. She was interested in going home but I informed her that she would not be able to get intravenous pain medication at home and there is a high risk that she'll have to do more activity at home and she may return to the emergency room because of lack of adequate pain control. For this reason we'll admit her as an inpatient to day and reassess potential discharge tomorrow to home. 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 Obviously being nonweightbearing in her right lower extremity and in a short leg splint she'll not be able to drive. 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 Otherwise she'll need to remain out of work. We will include this in her discharge summary. By postoperative day 2 the patient was slightly more comfortable. She will be given a dose of Toradol intravenously prior to discharge to make her trip on more comfortable. We discussed use of anti-inflammatory medications which can assist with healing of the syndesmotic injury to the right lower extremity and aid in healing of the right ankle sprain. The downside of this is that can delay the bony healing of her fibular fracture. We discussed smoking cessation. I included in discharge paperwork not to take alcohol with her pain medication. She will use enteric-coated aspirin 81 mg 1 twice a day to decrease risk of blood clot she is instructed on exercises of the lower extremities to decrease risk of blood clot and also to decrease atrophy. Physical Exam Narrative: EXAM NARRATIVE: 38-year-old white female no acute distress. She is alert and cooperative. Lungs are clear to auscultation heart is regular rhythm splint on the right lower extremity is clean dry and intact. Toes are sensate with normal cap refill. She has a lace up ankle brace on the left lower extremity. No calf tenderness of the left lower extremity. she's able to flex and extend the toes on both feet. Discharge Data Data Completed and Pending: Completed Studies During Hospitalization Category Date Time Status XR ankle RT 2V 73 600 Routine Exams 04/09/19 Completed XR ankle RT min 3 V* [id number] Stat Exams 04/09/19 14:06 Completed Labs from last 24 hours 04/11/19 04/11/19 04/10/19 05:46 05:46 13:20 WBC 6.6 9.2 RBC 3.70 L 3.76 L Hgb 12.3 12.8 Hct 37.2 37.9 MCV 100.5 H 100.8 H MCH 33.2 34.0 MCHC 33.1 33.8 RDW 12.1 12.0 L Plt Count 153 146 MPV 10.9 H 11.1 H Neut % (Auto) 65.5 86.8 Lymph % (Auto) 26.2 7.1 Billings % (Auto) 7.6 5.8 Eos % (Auto) 0.2 0.0 Baso % (Auto) 0.2 0.0 Neut # (Auto) 4.3 8.0 H Lymph # (Auto) 1.7 0.7 L Billings # (Auto) 0.5 0.5 Eos # (Auto) 0.0 0.0 Baso # (Auto) 0.0 0.0 Nucleated RBC % (a uto) 0 0 Nucleated RBCs # 0.0 0.0 Sodium 136 Potassium 3.5 Chloride 99 Carbon Dioxide 26 Anion Gap 14.5 BUN 6 Creatinine 0.7 GFR Calculation 92.7 Glucose 102 Calcium 8.9 Total Bilirubin 0.5 AST 27 ALT 19 Alkaline Phosphata se 59 Total Protein 7.2 Albumin 4.2 Globulin 3.0 04/10/19 13:20 WBC RBC Hgb Hct MCV MCH MCHC RDW Plt Count MPV Neut % (Auto) Lymph % (Auto) Billings % (Auto) Eos % (Auto) Baso % (Auto) Neut # (Auto) Lymph # (Auto) Billings # (Auto) Eos # (Auto) Baso # (Auto) Nucleated RBC % (a uto) Nucleated RBCs # Sodium 134 L Potassium 3.7 Chloride 98 Carbon Dioxide 21 L Anion Gap 18.7 BUN 7 Creatinine 0.8 GFR Calculation 79.4 L Glucose 143 H Calcium 9.1 Total Bilirubin 0.6 AST 34 H ALT 22 Alkaline Phosphata se 61 Total Protein 7.0 Albumin 4.4 Globulin 2.6 Vitals: Last Vital Signs Temp 98.1 F 04/11/19 08:14 Pulse 80 04/11/19 08:14 Resp 16 04/11/19 10:40 BP 106/70 04/11/19 08:14 Pulse Ox 98 04/11/19 08:14 Discharge Plan Discharge Patient Disposition: Home, Self-Care Condition: Stable Prescriptions: New Percocet 5-325 mg tablet 1 - 2 tab PO Q4H PRN (Reason: Pain, Severe) Qty: 40 RF: 0 Continued quetiapine 25 mg tablet 25 mg PO BEDTIME RF: 0 ropinirole 1 mg tablet 1 mg PO BEDTIME RF: 0 omeprazole 40 mg capsule,delayed release(DR/EC) 40 mg PO DAILY RF: 0 quetiapine 100 mg tablet 100 mg PO DAILY RF: 0 trazodone 150 mg tablet 150 mg PO BEDTIME RF: 0 metoprolol succinate 25 mg tablet extended release 24 hr 25 mg PO DAILY RF: 0 bupropion HCl 300 mg tablet extended release 24 hr 300 mg PO DAILY RF: 0 hydrochlorothiazide 12.5 mg tablet 12.5 mg PO DAILY RF: 0 Discharge Orders: Discharge Order (Routine); Ordered 04/11/19 Ordered By: Rakesh Dinh Other Ambulatory Orders: DME: Lonnie (Order) Location: None Selected Ordered By: Rakesh Dinh Referrals: Rakesh Dinh DO [Physician] - (Call office at [phone] to schedule follow-up appointment in approximately 2 to 3 weeks to have postoperative splint removed and at that time either complete or partial staple and suture removal application of Steri-Strips and follow-up x-rays of both ankles. Call office at [phone] if you have any questions or concerns) Discharge Diet: As Directed Discharge Activity: Increase activity as tolerated, Limit activity as instructed, Use walker/crutches as instructed and Return to work/school after cleared by PCP/Specialist Patient Instructions: Ankle Fracture (ED) Activity Restrictions/Additional Instructions: Keep splint on right lower extremity Keep splint clean and dry Applying ice and elevating right ankle is recommended decrease pain and swelling. Make amount of lace up ankle brace to move ankle and to bathe Nonweightbearing right lower extremity Weightbearing as tolerated left lower extremity As you are able flex and extend toes and ankles of both lower extremities isometric contraction of calf and thigh muscles and gluteal squeezes were to perform 25 repetitions of each 3-4 times per day to maintain strength and decrease risk of blood clots. Wceu-jam-gbbnviy 81 mg aspirin 1 p.o. twice a day until out of immobilization Calcium supplement 1 twice a day Vitamin D3 supplement 2000 international units 1/day Strongly consider discontinuing smoking may discuss with primary care provider methods and means to stop smoking. Recommend no use of alcohol-containing beverages while taking narcotic pain medication No return to work until cleared by physician Discuss with employer what the limitations the will allow to which he returned some degree of work Discharge Attestations Time Spent in Discharge Care*: greater than 30 min Specific Discharge Activities: Specific discharge activities: educating patient, documenting/other paperwork and evaluating patient/reviewing data Other discharge activites (optional): Smoking cessation Time Spent in Smoking Cessation: Time spent discussing smoking cessation with patient: 3 to 10 minutes Status at Discharge: Cognitive status at discharge: cognitively intact , Behavioral status at discharge: cooperative , Functional status at discharge: uses cane/walker Overall status at discharge: patient is not back to baseline Quality Metrics Clinical Quality Measures During this hospital stay, did patient experience: None Coding Level of Care Code 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
[2019-04-11] MEDS: ketorolac 30 mg/mL INJ IVP (11:24)
--- NOTE | 2019-04-11 12:29 | P.PN_ITS ---
Subjective Subjective: Interval history: Postoperative day 2. No acute events overnight. Has not required any Ativan overnight. She denies any nausea, vomiting, dizziness, headache, palpitations, decreased feeling. Has worked well with physical therapy. Complaining mildly of pain. Vitals/I&O/Wt Last Vital Signs Temp 98.1 F 04/11/19 08:14 Pulse 80 04/11/19 08:14 Resp 16 04/11/19 11:17 BP 106/70 04/11/19 08:14 Pulse Ox 98 04/11/19 08:14 04/10/19 04/11/19 04/11/19 22:59 06:59 14:59 Intake Total 360 / 360 Output Total 1550 / 1950 450 / 2400 Balance -1550 / -1540 -450 / -1989 360 / 360 Weight last 48 hrs Weight 90.718 kg Physical Exam Narrative: EXAM NARRATIVE: General: No acute distress, AO x3, no acute distress HEENT: PERRLA, pupils bilaterally equal and reactive Chest: Clear to auscultation B/L all areas CVS: S1-S2 regular, no murmurs, no tachycardia, no gallops, no rubs Abdomen: Soft, nontender, no organomegaly, bowel sounds present Neuro: No focal deficits, no facial deformity, AO x3, power 5/5 in all limbs EXT: Post op surgical dressing in place over R leg, not opened by me for exam. Palpable dorsalis pedis, no neuro deficit Data : 04/11/19 05:46 04/11/19 05:46 A&P Assessment and plan (1) Fracture dislocation of right ankle joint: Status: Acute Code(s): S82.891A - Other fracture of right lower leg, initial encounter for closed fracture (2) Alcohol abuse: Status: Acute Code(s): F10.10 - Alcohol abuse, uncomplicated (3) Hypertension: Status: Acute Code(s): I10 - Essential (primary) hypertension (4) Nicotine dependence: Status: Acute Code(s): F17.200 - Nicotine dependence, unspecified, uncomplicated Additional A&P Information Admitted to med/surg postopertaively Fracture dislocation of right ankle joint s/p Open right internal fixation right lateral malleolus fracture POD # 2 Complains of mild pain and soreness at surgical site, currently ordered for hydromorphone prn + po oxycodone- APAP. We will continue the current pain management. Physical therapy, weightbearing and postop antibiotics as per orthopedics team. Surgical wound care per orthopedics Alcohol abuse disorder, last drink at 1:30 pm on day of admission Blood alcohol level 210. In danger of alcohol withdrawal most likely today evening or tomorrow morning. Concern for alcohol withdrawal while admitted, ordered for prn ativan per CIWA protocol. CIWA 1 right now. Thiamine, folic acid, multivitamins as per the protocol. Patient already received banana bag. Nicotine dependence, currently craving cigarettes Will order nicotine patch for hospital use Hypertension: Currently well controlled. Continue home dose metoprolol to avoid refractory tachycardia. Will hold off on HTCZ for now to avoid post op dehydration. DC IV fluids as patient looks euvolemic for now. Continue to hold off on hydrochlorothiazide. Hyponatremia: Sodium levels 127 on admission. Labs awaited this morning. Patient does not have any stigmata of hyponatremia. Most likely low because of chronic alcoholism. We will continue to monitor for now. We will hold off on fluids for now as patient seems euvolemic. Depression : continue seroquel and trazodone at home dose Restless leg syndrome: Continue with home dose ropinirole DVT ppx: ASA 325mg as per ortho team Full code Regular diet. Protonix for PUD prophylaxis. Patient is okay to be discharged as per medicine. Thank you for involving me in her care. 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
== END 2019-04-11 11:51 | disposition home or self-care (01) | DRG 494 ==
LOC: ER 14:33 → OR 15:34 → MEDSURG 17:54
PROVIDERS: Anesthesiology; Family Medicine; Student in an Organized Health Care Education/Training Program; Admitting Provider Orthopaedic Surgery; Emergency Provider Nurse Practitioner Family; Visit Provider Orthopaedic Surgery
PROC: 0QSG04Z Reposition Right Tibia with Internal Fixation Device, Open Approach (ICD-10-PCS; principal; 2019-04-09 16:00)
DX: S82.841A Displaced bimalleolar fracture of right lower leg, initial encounter for closed fracture (principal); F10.10 Alcohol abuse, uncomplicated; Y90.7 Blood alcohol level of 200-239 mg/100 ml; I10 Essential (primary) hypertension; F17.200 Nicotine dependence, unspecified, uncomplicated; F32.9 Major depressive disorder, single episode, unspecified; E66.9 Obesity, unspecified; Z68.31 Body mass index [BMI] 31.0-31.9, adult; G25.81 Restless legs syndrome; W01.0XXA Fall on same level from slipping, tripping and stumbling without subsequent striking against object, initial encounter; Z79.83 Long term (current) use of bisphosphonates; Z79.899 Other long term (current) drug therapy
CPT/HCPCS: 12345; 36415; 73600; 73610; 76000; 80048; 80053; 80307; 81025; 85025; 85610; 96372; 96375; 97161; 97166; 97530; 99283; C1713; G0378; J0330; J0697; J1100; J1170; J1580; J1885; J2001; J2250; J2270; J2405; J2704; J3010; J3411; J3490; J7030; L1902

== ENCOUNTER → 2019-04-21 10:00 | Outpatient (BNVA) | payer OTHER, SELFPAY | PROVIDERS: Visit Provider Orthopaedic Surgery | DX: S82.841A Displaced bimalleolar fracture of right lower leg, initial encounter for closed fracture; X58.XXXA Exposure to other specified factors, initial encounter | CPT/HCPCS: 73610 ==

== ENCOUNTER 2019-05-06 10:20 | Outpatient (CLI) | payer OTHER, SELFPAY ==
--- NOTE | 2019-05-06 10:29 | XR_ITS ---
WS: [id number] XR ankle RT min 3V* [id number] REASON FOR EXAM: right ankle fracture FINDINGS: The fracture of the fibula is seen immobilized with a metal plate with 6 screws the alignme nt is satisfactory. The ankle mortise appears to be stable. The small fracture off the posterior christopher f of the tibia is also noted and appears to be in adequate position. XR/XR ankle RT min 3V* [id number] IMPRESSION: Satisfactory position fractures of the lateral malleolus and posterior shelf th e tibia stabilized by internal fixation satisfactory alignment.
== END 2019-05-06 10:21 | disposition home or self-care (01) ==
LOC: RAD 10:26
PROVIDERS: PCP Nurse Practitioner Family; Visit Provider Orthopaedic Surgery
DX: S82.843A Displaced bimalleolar fracture of unspecified lower leg, initial encounter for closed fracture (principal); X58.XXXA Exposure to other specified factors, initial encounter
CPT/HCPCS: 73610

== ENCOUNTER 2019-05-06 12:03 | Outpatient (CLI) | payer OTHER, SELFPAY | END 2019-05-06 12:04 | disposition home or self-care (01) | LOC: SPT 12:04 | PROVIDERS: PCP Nurse Practitioner Family; Visit Provider Orthopaedic Surgery | DX: Z98.890 Other specified postprocedural states (principal) | CPT/HCPCS: L4361 ==

== ENCOUNTER → 2019-05-20 11:08 | Outpatient (BNVA) | payer OTHER, SELFPAY | PROVIDERS: PCP Nurse Practitioner Family; Visit Provider Orthopaedic Surgery | DX: S82.843A Displaced bimalleolar fracture of unspecified lower leg, initial encounter for closed fracture (principal); Z48.89 Encounter for other specified surgical aftercare; S82.841A Displaced bimalleolar fracture of right lower leg, initial encounter for closed fracture; S93.402A Sprain of unspecified ligament of left ankle, initial encounter; Z98.890 Other specified postprocedural states; X58.XXXA Exposure to other specified factors, initial encounter | CPT/HCPCS: 73610 ==

== ENCOUNTER 2019-05-20 11:54 | Outpatient (CLI) | payer OTHER, SELFPAY | END 2019-05-20 11:55 | disposition home or self-care (01) | LOC: SPT 11:54 | PROVIDERS: PCP Nurse Practitioner Family; Visit Provider Orthopaedic Surgery | DX: Z46.89 Encounter for fitting and adjustment of other specified devices (principal); S82.841D Displaced bimalleolar fracture of right lower leg, subsequent encounter for closed fracture with routine healing; X58.XXXD Exposure to other specified factors, subsequent encounter | CPT/HCPCS: L1902 ==

== ENCOUNTER 2020-11-15 08:57 | Outpatient (CLI) | payer OTHER, SELFPAY ==
--- NOTE | 2020-11-15 09:33 | CT_ITS ---
WS: [id number] CT CHEST TECHNIQUE: Contrast enhanced CT of the chest with coronal and sagittal reformatted images. CLINICAL INFORMATION: RIB PAIN ON RIGHT SIDE COMPARISON: None. DLP: [address] scans at [facility] use at least one of these dose optimization techniques: automated e xposure control; mA and/or kV adjustment per patient size (includes targeted exams where dose is matc hed to clinical indication); or iterative reconstruction. FINDINGS:. Healing left fifth and sixth rib fractures laterally with callus formation. This corresponds to the c hest x-ray findings. No other rib fractures. Normal caliber thoracic aorta. Proximal main pulmonary arteries are normal. No mediastinal or hilar l ymphadenopathy. Adrenal glands are normal. Diffuse fatty infiltration of the liver. Normal GE junctio n. Small splenule. Moderate chronic emphysematous changes. Micronodular infiltrates in the right upper lobe likely infec tious or inflammatory bronchiolitis. No focal pneumonia or pleural fluid. CT/CT chest w con* [id number] IMPRESSION: 1. Healing left fifth and sixth rib fractures with callus formation correspond s to the x-ray findings. 2. Moderate chronic emphysematous changes. No focal pneumonia or pleural fluid . 3. Patchy micronodular infiltrates in right upper lobe likely infectious or in flammatory bronchiolitis. Recommend correlation for pneumonitis 4. Diffuse fatty infiltration of the liver.
[2020-11-15] MEDS: iohexol 300 mg/mL 100 mL Btl IV (09:53)
== END 2020-11-15 08:58 | disposition home or self-care (01) ==
PROVIDERS: PCP Nurse Practitioner Family; Visit Provider Nurse Practitioner Family
DX: K76.0 Fatty (change of) liver, not elsewhere classified (principal); R91.8 Other nonspecific abnormal finding of lung field; S22.42XA Multiple fractures of ribs, left side, initial encounter for closed fracture; X58.XXXA Exposure to other specified factors, initial encounter
CPT/HCPCS: 71260; Q9967

== ENCOUNTER 2021-01-23 09:16 | Outpatient (CLI) | payer OTHER, SELFPAY ==
[2021-01-23 09:45] VITALS: BP 138/96; PULSE 71; RESP 16; TEMP 36.9; O2SAT 99; BMI 34.4
[2021-01-23 11:32] VITALS: BP 121/91; PULSE 71; RESP 18; TEMP 36.3; O2SAT 98
== END 2021-01-23 09:17 | disposition home or self-care (01) ==
LOC: OPS 09:21
PROVIDERS: PCP Nurse Practitioner Family; Visit Provider Nurse Practitioner Family
DX: U07.1 COVID-19 (principal)
CPT/HCPCS: 96365

== ENCOUNTER 2021-07-05 10:30 | Outpatient (CLI) | payer BC, SELFPAY ==
--- NOTE | 2021-07-05 | XR_ITS ---
WS: [id number] Chest 2 views, 07/05/2021 Clinical Data: CHEST DISCOMFORT Comparison: PA and lateral chest, 10/25/2020 Findings: No nodules, masses or effusions are seen. The heart is normal. The pulmonary vascularity is not increased. No pneumonia or pneumothorax is seen. The lateral left sixth rib probably has a old f racture. XR/XR chest 2V* [id number] Impression: Negative chest.
== END 2021-07-05 10:31 | disposition home or self-care (01) ==
PROVIDERS: PCP Nurse Practitioner Family; Visit Provider Nurse Practitioner Family
DX: R07.89 Other chest pain (principal)
CPT/HCPCS: 71046

== ENCOUNTER 2022-09-23 08:00 | Outpatient (CLI) | payer BC, SELFPAY ==
--- NOTE | 2022-09-23 08:11 | MM_ITS ---
WS: [id number] BILATERAL 3D TOMOSYNTHESIS DIGITAL SCREENING MAMMOGRAPHY WITH CAD CLINICAL INFORMATION: SCREENING HISTORY: Screening mammogram. No current complaints. COMPARISON: Baseline TECHNIQUE: Bilateral CC and MLO views. FINDINGS: The breasts are composed of heterogeneous fibroglandular density tissue, which can limit the detectio n of small underlying mass lesions. No suspicious mass, asymmetry, calcifications, or architectural d istortion. No evidence of malignancy. A few incidental punctate calcifications. MM/[place] [id number] IMPRESSION: BI-RADS: 2-Benign FOLLOW UP: 1 Year Follow-up Recommend return to annual screening mammography.
== END 2022-09-23 08:01 | disposition home or self-care (01) ==
LOC: RAD 08:06 → MOBLMAM 08:08
PROVIDERS: PCP Nurse Practitioner Family; Visit Provider Obstetrics & Gynecology Gynecology
DX: Z12.31 Encounter for screening mammogram for malignant neoplasm of breast (principal)
CPT/HCPCS: 77063; 77067

== ENCOUNTER 2024-06-30 05:56 | Day surgery (SDC) | payer BC, SELFPAY ==
[2024-06-30 06:13] VITALS: BP 110/76; PULSE 114; RESP 18; TEMP 36.8; O2SAT 95; BMI 29.0
[2024-06-30] MEDS: sodium chloride 0.9% 1,000 ML 15 ML IV (06:28)
[2024-06-30 06:32] LABS: OR HCG Qualitative Urine Negative (Negative)
--- NOTE | 2024-06-30 06:39 | W.PM.OPSFHP ---
Same Day Surgery H&P Indication for Procedure/HPI DATE OF PROCEDURE: June 30, 2024 CHIEF COMPLAINT/INDICATIONFOR SURGICAL PROCEDURE: need for screening colonoscopy PREOP DIAGNOSIS: need for screening colonoscopy PLANNED PROCEDURE: Operation Date: 06/30/24 07:00 Proposed Procedures p Colonoscopy 39338, G0105, Z12.11(Not Applicable) - Giuseppe Chung MD Medications/Allergies* Home Medications ?Medication ?Instructions ?Recorded ?Confirmed ?Type hydrochlorothiazide 12.5 mg tablet 12.5 mg PO DAILY 04/09/19 06/25/24 History omeprazole 40 mg capsule,delayed 40 mg PO DAILY 04/09/19 06/25/24 History release quetiapine 100 mg tablet 100 mg PO DAILY 04/09/19 06/25/24 History ropinirole 1 mg tablet 1 mg PO BEDTIME 04/09/19 06/25/24 History trazodone 150 mg tablet 150 mg PO BEDTIME 04/09/19 06/25/24 History losartan 50 mg tablet 50 mg PO DAILY 01/23/21 06/25/24 History meloxicam 15 mg tablet 15 mg PO DAILY 05/04/24 06/25/24 History metoprolol succinate 25 mg 12.5 mg PO DAILY 05/04/24 06/25/24 History tablet,extended release 24 hr quetiapine 25 mg tablet 50 mg PO BEDTIME 05/04/24 06/25/24 History azelaic acid 15 % topical gel 1 applic topical BID PRN Outbreak 06/25/24 06/25/24 History Allergies/Adverse Reactions Allergy/AdvReac Type Severity Reaction Status Date / Time No Known Allergies Allergy Verified 06/30/24 06:07 Current Medications: Generic Name Dose Route Start Last Admin Trade Name Freq PRN Reason Stop Dose Admin Sodium Chloride 1,000 mls @ 15 mls/hr 06/30/24 06:02 06/30/24 06:28 Sodium Chloride 0.9% IV 07/01/24 06:01 15 mls/hr .Q24H PRN Administration COLONOSCOPY FLUIDS Pertinent History/Comorbid Conditions* Medical History (Updated 05/04/24 @ 12:28 by Abram Jose MD) Depression Restless leg syndrome IBS (irritable bowel syndrome) Chronic back pain Alcohol abuse Elevated blood alcohol level at admission Hypertension Left ankle sprain Surgical History (Updated 05/04/24 @ 11:53 by Abram Jose MD) S/P surgery on nasal septum History of ankle surgery ORIF of right distal tibiofibular joint and lateral malleolus fracture DOS: 04/09/[address] 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
--- NOTE | 2024-06-30 06:57 | ANES.PREANE2 ---
Pre-Anesthetic Assessment Height/Weight: Height 1.7 m Weight 83.915 kg Temp Pulse Resp BP Pulse Ox O2 Del Method 98.2 F 114 H 18 110/76 95 Room Air 06/30/24 06:13 06/30/24 06:13 06/30/24 06:13 06/30/24 06:13 06/30/24 06:13 06/30/24 06:13 Preop Diagnosis: need for screening colonoscopy Operation Date: 06/30/24 07:00 Proposed Procedures p Colonoscopy 50396, G0105, Z12.11(Not Applicable) - Giuseppe Chung MD Familial anesthetic complications: none Was Beta Shoaib taken within 24 hours: Yes Was Clonidine taken within 24 hours: N/A Last intake: Intake Last Liquid Date 06/29/24 Last Liquid Time 23:30 Last Solid Date 06/28/24 Last Solid Time 19:30 Social Alcohol and Tobacco 1ppd, dialy MJ gummies at night pack(s) per day 6 beers/day Exam alert and oriented x 3 Airway Submandibular: within normal limits Cervical ROM: within normal limits Mallampati: Class II Dentition: full Pulmonary Asthma, Chronic Obstructive Pulmonary Disease, Exertional Dyspnea and Sleep Apnea (no cpap) CV/HEM Hypertension None reported Hepatic None reported GI Gastroesophageal Reflux Disease (controlled with meds) Metabolic Hyperlipidemia [facility] None reported Neuropsych None reported Anesthetic Plan ASA status: 3 Anesthesia: Anesthesia Evaluation and MAC Medications/Allergies Home Medications ?Medication ?Instructions ?Recorded ?Confirmed ?Last Taken ?Type hydrochlorothiazide 12.5 mg tablet 12.5 mg PO DAILY 04/09/19 06/25/24 06/25/24 History omeprazole 40 mg capsule,delayed 40 mg PO DAILY 04/09/19 06/25/24 06/30/24 05:15 History release quetiapine 100 mg tablet 100 mg PO DAILY 04/09/19 06/25/24 06/25/24 History ropinirole 1 mg tablet 1 mg PO BEDTIME 04/09/19 06/25/24 06/25/24 History trazodone 150 mg tablet 150 mg PO BEDTIME 04/09/19 06/25/24 06/25/24 History Lace up ankle brace #1 ea 05/20/19 05/19/24 Unknown Rx losartan 50 mg tablet 50 mg PO DAILY 01/23/21 06/25/2406/25/25 History meloxicam 15 mg tablet 15 mg PO DAILY 05/04/24 06/25/24 06/25/24 History metoprolol succinate 25 mg 12.5 mg PO DAILY 05/04/24 06/25/24 06/30/24 05:15 History tablet,extended release 24 hr quetiapine 25 mg tablet 50 mg PO BEDTIME 05/04/24 06/25/24 06/25/24 History ondansetron 8 mg disintegrating 8 mg PO Q8H PRN nausea and 05/19/24 06/25/24 06/30/24 05:15 Rx tablet vomiting #3 tabs albuterol sulfate 90 mcg/actuation 2 puff inhalation Q6H PRN 06/09/24 06/25/24 06/30/24 05:15 Rx aerosol inhaler shortness of breath or wheezing #8.5 grams azelaic acid 15 % topical gel 1 applic topical BID PRN Outbreak 06/25/24 06/25/24 06/25/24 History Allergies Allergy/AdvReac Type Severity Reaction Status Date / Time No Known Allergies Allergy Verified 06/30/24 06:07 Current Medications Generic Name Dose Route Start Last Admin Trade Name Freq PRN Reason Stop Dose Admin Sodium Chloride 1,000 mls @ 15 mls/hr 06/30/24 06:02 06/30/24 06:28 Sodium Chloride 0.9% IV 07/01/24 06:01 15 mls/hr .Q24H PRN Administration COLONOSCOPY FLUIDS PFSH Anesthesia Medical History Depression Restless leg syndrome IBS (irritable bowel syndrome) Chronic back pain Alcohol abuse Elevated blood alcohol level at admission Hypertension Left ankle sprain Surgical History S/P surgery on nasal septum History of ankle surgery ORIF of right distal tibiofibular joint and lateral malleolus fracture DOS: 04/09/[address] Dinh Family History Father CAD (coronary artery disease), Onset Age: 51 [place] Diabetes Mother No problems noted. 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
[2024-06-30 07:36] VITALS: BP 95/70; PULSE 92; RESP 16; TEMP 36.4; O2SAT 96
--- NOTE | 2024-06-30 07:39 | ANE.PACU2 ---
Inpatient post-anesthesia follow up: Airway intact: Yes Vital signs: Temperature 98.2 F Pulse Rate 114 Respiratory Rate 18 Blood Pressure 110/76 Pulse Oximetry 95 Oxygen Delivery Me thod Room Air Oxygen Flow Rate Fraction of Inspir ed Oxygen Hydration adequate: Yes Nausea and vomiting: No Pain level: 1 Mental status: Baseline
[2024-06-30 08:01] VITALS: BP 123/87; PULSE 86; RESP 18; O2SAT 97
== END 2024-06-30 08:21 | disposition home or self-care (01) ==
PROVIDERS: Anesthesiology; PCP Family Medicine; Visit Provider Surgery
PROC: 0DJD8ZZ Inspection of Lower Intestinal Tract, Via Natural or Artificial Opening Endoscopic (ICD-10-PCS; CPT 45378; principal; 2024-06-30 07:00)
DX: Z12.11 Encounter for screening for malignant neoplasm of colon (principal); I10 Essential (primary) hypertension; K58.9 Irritable bowel syndrome, unspecified; E78.5 Hyperlipidemia, unspecified; J44.9 Chronic obstructive pulmonary disease, unspecified; G47.30 Sleep apnea, unspecified; F17.210 Nicotine dependence, cigarettes, uncomplicated; K21.9 Gastro-esophageal reflux disease without esophagitis; Z79.899 Other long term (current) drug therapy
CPT/HCPCS: 45380; 81025; 88305; J2704; J3490; J7030; J9999

== ENCOUNTER → 2024-08-10 08:24 | Outpatient (BNVA) | payer BC, SELFPAY | PROVIDERS: PCP Family Medicine; Visit Provider Family Medicine | DX: R19.7 Diarrhea, unspecified (principal) | CPT/HCPCS: 87045; 87177; 87209; 87328; 87329; 87427; 87449; 87493 ==

== ENCOUNTER → 2024-10-01 11:06 | Outpatient (BNVA) | payer BC, SELFPAY | PROVIDERS: PCP Family Medicine; Visit Provider Family Medicine | DX: Z51.81 Encounter for therapeutic drug level monitoring (principal); R10.9 Unspecified abdominal pain; R63.4 Abnormal weight loss; R53.81 Other malaise; R53.83 Other fatigue; R73.09 Other abnormal glucose | CPT/HCPCS: 80053; 83036; 83690; 84439; 84443; 85025; 86140 ==

== ENCOUNTER 2024-10-27 09:37 | Outpatient (CLI) | payer BC, SELFPAY ==
--- NOTE | 2024-10-27 09:40 | MM_ITS ---
WS: [id number] BILATERAL SCREENING DIGITAL TOMOSYNTHESIS MAMMOGRAM WITH CAD HISTORY: Screening mammogram COMPARISON: 09/23/2022 Bilateral CC and MLO views with tomosynthesis and synthetic mammography submitted. Computer aided detection analyzed. Breast composition: The breasts are heterogeneously dense, which may obscure small masses. No suspicious masses, microcalcifications or architectural distortion. MM/MM scr BI tomosynthesis [id number] IMPRESSION: BI-RADS: 1 - Negative FOLLOW UP: 1 Year Follow-up
== END 2024-10-27 09:38 | disposition home or self-care (01) ==
LOC: RAD 09:38
PROVIDERS: PCP Family Medicine; Visit Provider Family Medicine
DX: Z12.31 Encounter for screening mammogram for malignant neoplasm of breast (principal); R92.333 Mammographic heterogeneous density, bilateral breasts
CPT/HCPCS: 77063; 77067